=== PATIENT | male | born 1940 | race Caucasian/White ===

== ENCOUNTER 2024-06-09 11:36 | Outpatient (CLI) | payer MEDICARE, OTHER ==
[2024-06-09 12:23] LABS: BASOPHILS # (AUTO) 0.1 K/uL (0.0-0.2); BASOPHILS % (AUTO) 0.7 % (0.0-2.0); EOSINOPHILS # (AUTO) 0.1 K/uL (0.0-0.7); EOSINOPHILS % (AUTO) 1.9 % (0.0-6.0); HEMATOCRIT 43 % (39-51); HEMOGLOBIN 15.3 g/dL (13.5-17.5); LYMPHOCYTES # (AUTO) 2.6 K/uL (0.8-4.8); LYMPHOCYTES % (AUTO) 33.6 % (20.0-44.0); MEAN CORPUSCULAR HEMOGLOBIN 32 PG (26.0-33.0); MEAN CORPUSCULAR HGB CONC 35 g/dl (31.0-36.0); MEAN CORPUSCULAR VOLUME 92 fL (80-96); MONOCYTES # (AUTO) 0.9 K/uL (0.1-1.30); MONOCYTES % (AUTO) 11.2 % (2.0-12.0); NEUTROPHILS % (AUTO) 52.6 % (43.0-81.0); PLATELET COUNT (AUTO) 176 K/uL (150-450); RED BLOOD CELL COUNT(AUTO) 4.72 MIL/uL (4.5-6.0); RED CELL DISTRIBUTION WIDTH 12.7 % (11.5-15.0); WHITE BLOOD COUNT (AUTO) 7.6 K/uL (4.3-11.0)
[2024-06-09 12:27] LABS: ALANINE AMINOTRANSFERASE 30 U/L (12-78); ALBUMIN 3.3 g/dL (3.4-5.0); ALKALINE PHOSPHATASE 63 U/L (46-116); ASPARTATE AMINOTRANSFERASE 23 U/L (15-37); BILIRUBIN,TOTAL 0.4 mg/dL (0.2-1.0); CALCIUM, SERUM 8.9 mg/dL (8.5-10.1); CARBON DIOXIDE 31 mmol/L (21-32); CHLORIDE 103 mmol/L (98-107); CREATININE 1.1 mg/dL (0.6-1.3); GLUCOSE 99 mg/dL (74-106); POTASSIUM 3.9 mmol/L (3.5-5.1); SODIUM SERUM 140 mmol/L (136-145); TOTAL PROTEIN, SERUM 7.4 g/dL (6.4-8.2); UREA NITROGEN, BLOOD 18 mg/dL (7-18)
[2024-06-09 12:28] LABS: INR 0.99 (0.91-1.10); PROTHROMBIN TIME 10.5 SECS (9.2-11.1)
== END 2024-06-09 23:59 | disposition home or self-care (01) ==
LOC: RAD 11:36
PROVIDERS: ATTEND Internal Medicine Interventional Cardiology
DX: Z01.818 Encounter for other preprocedural examination (principal); D68.9 Coagulation defect, unspecified
CPT/HCPCS: 36415; 71046; 80053-TC; 85025-TC; 85610-TC; 85730-TC

== ENCOUNTER 2024-06-25 09:01 | Inpatient (IN) | payer MEDICARE, OTHER ==
[~2024-06-25] VITALS: Ht 165.1 cm; Wt 70.3 kg
[2024-06-25] MEDS ORDERED: LIDOCAINE 1%-EPI 1:100,000 20 ML VIAL ONE (10:37)
[2024-06-25] MEDS ORDERED: OXYMETAZOLINE HCL NASAL SPRAY 30 ML BOTTLE NS ONE (10:37)
[2024-06-25] MEDS ORDERED: VANCOMYCIN 1 GM VIAL ONE (10:37)
[2024-06-25] MEDS ORDERED: dexaMETHasone SOD PHOSPHATE 2 ML ONE (10:37)
[2024-06-25] MEDS ORDERED: LIDOCAINE 2%-EPI 1:100,000 30 ML VIAL ONE (10:38)
[2024-06-25 13:25] VITALS: BP 109/62; TEMP 98.5; O2SAT 94
[2024-06-25] MEDS ORDERED: ONDANSETRON HCL/PF 4 MG/2 ML VIAL IV PRN (13:30)
[2024-06-25 13:40] VITALS: BP 113/62; TEMP 98.7; O2SAT 95
[2024-06-25 13:55] VITALS: BP 118/63; TEMP 98.5; O2SAT 95
[2024-06-25 14:05] VITALS: BP 115/64; TEMP 98.5; O2SAT 96
[2024-06-25] MEDS: IV NS 0.9% 1,000 ML IV PRN (15:01)
[2024-06-25] MEDS: HYDROMORPHONE 1 MG/1 ML DISP.SYRIN IV PRN (15:06)
[2024-06-25 16:00] VITALS: BP 126/65; TEMP 98.2; O2SAT 96
[2024-06-25 20:00] VITALS: BP 113/57; TEMP 98.4; O2SAT 91; O2SAT 95
[2024-06-25] MEDS: ACETAMINOPHEN 325 MG TABLET PO PRN (20:42)
[2024-06-25] MEDS: VANCOMYCIN 1 GM in IV D5W 250ml IV SCH (21:48)
[2024-06-26 07:01] LABS: BASOPHILS % (AUTO) 0.1 % (0.0-2.0); HEMATOCRIT 39 % (39-51); HEMOGLOBIN 13.8 g/dL (13.5-17.5); LYMPHOCYTES # (AUTO) 1.5 K/uL (0.8-4.8); LYMPHOCYTES % (AUTO) 10.6 % (20.0-44.0); MEAN CORPUSCULAR HEMOGLOBIN 32 PG (26.0-33.0); MEAN CORPUSCULAR HGB CONC 35 g/dl (31.0-36.0); MEAN CORPUSCULAR VOLUME 92 fL (80-96); MONOCYTES # (AUTO) 0.8 K/uL (0.1-1.30); MONOCYTES % (AUTO) 5.9 % (2.0-12.0); NEUTROPHILS # (AUTO) 11.8 K/uL (1.8-8.9); NEUTROPHILS % (AUTO) 83.4 % (43.0-81.0); PLATELET COUNT (AUTO) 149 K/uL (150-450); RED BLOOD CELL COUNT(AUTO) 4.27 MIL/uL (4.5-6.0); RED CELL DISTRIBUTION WIDTH 12.7 % (11.5-15.0); WHITE BLOOD COUNT (AUTO) 14.2 K/uL (4.3-11.0)
[2024-06-26 07:10] LABS: ALANINE AMINOTRANSFERASE 26 U/L (12-78); ALBUMIN 2.9 g/dL (3.4-5.0); ALKALINE PHOSPHATASE 44 U/L (46-116); ASPARTATE AMINOTRANSFERASE 20 U/L (15-37); BILIRUBIN,TOTAL 0.6 mg/dL (0.2-1.0); CALCIUM, SERUM 8.9 mg/dL (8.5-10.1); CARBON DIOXIDE 26 mmol/L (21-32); CHLORIDE 110 mmol/L (98-107); GLUCOSE 120 mg/dL (74-106); MAGNESIUM 2.1 mg/dL (1.8-2.4); POTASSIUM 3.8 mmol/L (3.5-5.1); SODIUM SERUM 142 mmol/L (136-145); TOTAL PROTEIN, SERUM 6.6 g/dL (6.4-8.2); UREA NITROGEN, BLOOD 29 mg/dL (7-18)
[2024-06-26 08:00] VITALS: BP 110/68; TEMP 97.5; O2SAT 99
== END 2024-06-26 10:15 | disposition home or self-care (01) | DRG 496 ==
LOC: DS 09:01 → MED 13:24
PROVIDERS: ADMIT Internal Medicine; ATTEND Internal Medicine
PROC: 0N5R0ZZ Destruction of Maxilla, Open Approach (ICD-10-PCS; principal; 2024-06-25)
PROC: 0NUR07Z Supplement Maxilla with Autologous Tissue Substitute, Open Approach (ICD-10-PCS; 2024-06-25)
PROC: 0NUR0JZ Supplement Maxilla with Synthetic Substitute, Open Approach (ICD-10-PCS; 2024-06-25)
PROC: 0NHR04Z Insertion of Internal Fixation Device into Maxilla, Open Approach (ICD-10-PCS; 2024-06-25)
PROC: [UNRECOGNIZED PROCEDURE] (2024-06-25)
DX: T84.69XA Infection and inflammatory reaction due to internal fixation device of other site, initial encounter (principal); M87.9 Osteonecrosis, unspecified; S02.40CK Maxillary fracture, right side, subsequent encounter for fracture with nonunion; S02.40DK Maxillary fracture, left side, subsequent encounter for fracture with nonunion; M27.2 Inflammatory conditions of jaws; I10 Essential (primary) hypertension; I08.0 Rheumatic disorders of both mitral and aortic valves; X58.XXXD Exposure to other specified factors, subsequent encounter; D16.4 Benign neoplasm of bones of skull and face; Y83.8 Other surgical procedures as the cause of abnormal reaction of the patient, or of later complication, without mention of misadventure at the time of the procedure; Y92.009 Unspecified place in unspecified non-institutional (private) residence as the place of occurrence of the external cause
CPT/HCPCS: 36415; 80053-TC; 83735-TC; 84100-TC; 85025-TC; 87081-TC; A4223; A4338; C1713; C1781; G0378; J0360; J0461; J0690; J1100; J1171; J2704; J3370; J3490; J7030; J7060

== ENCOUNTER 2024-10-29 07:39 | Inpatient (IN) | payer MEDICARE, OTHER ==
[~2024-10-29] VITALS: Ht 162.6 cm; Wt 83.9 kg
[~2024-10-29 07:39] MED LIST: LIDOCAINE 2%-EPI 1:100,000 30 ML VIAL ONE; VANCOMYCIN 1 GM VIAL ONE; dexaMETHasone SOD PHOSPHATE 1 ML ONE
[2024-10-29] MEDS ORDERED: LABETALOL HCL IV 100MG VIAL ONE (09:25)
[2024-10-29] MEDS ORDERED: dexaMETHasone SOD PHOSPHATE 2 ML ONE (10:20)
[2024-10-29] MEDS ORDERED: LIDOCAINE 2%-EPI 1:100,000 30 ML VIAL ONE (10:21)
[2024-10-29] MEDS ORDERED: VANCOMYCIN 1 GM VIAL ONE (10:21)
[2024-10-29] MEDS ORDERED: OXYMETAZOLINE HCL NASAL SPRAY 30 ML BOTTLE NS ONE (10:21)
[2024-10-29 11:00] VITALS: BP_SYST 114; BP_SYST 130; BP_DIAS 60; BP_DIAS 75; TEMP 97.5; TEMP 98.8; O2SAT 95; O2SAT 98
[2024-10-29] MEDS ORDERED: ONDANSETRON HCL/PF 4 MG/2 ML VIAL IV PRN (11:30)
[2024-10-29] MEDS ORDERED: HYDROMORPHONE 1 MG/1 ML DISP.SYRIN IV PRN ×2 (11:30)
[2024-10-29] MEDS ORDERED: PITA4TAB PO (13:32)
[2024-10-29] MEDS ORDERED: NEBI10TA2 PO (13:32)
[2024-10-29] MEDS ORDERED: LEVO25TA9 PO (13:32)
[2024-10-29] MEDS ORDERED: TAMS-12 PO (13:32)
[2024-10-29] MEDS ORDERED: ICOS1CAP PO (13:32)
[2024-10-29] MEDS ORDERED: ERGO500093 PO (13:32)
[2024-10-29] MEDS ORDERED: OLME1TAB92 PO (13:32)
[2024-10-29] MEDS ORDERED: TRAZ-252 PO (13:32)
[2024-10-29] MEDS ORDERED: DONE23TA3 PO (13:32)
[2024-10-29] MEDS ORDERED: HYDR100T27 PO (13:32)
[2024-10-29] MEDS ORDERED: ESZO3TAB39 MT (13:32)
[2024-10-29] MEDS ORDERED: ISOS10TA2 PO (13:32)
[2024-10-29] MEDS: IV NS 0.9% 1,000 ML IV PRN (14:57)
[2024-10-29] MEDS: ACETAMINOPHEN 325 MG TABLET PO PRN (15:41)
[2024-10-29 16:00] VITALS: BP 128/64; TEMP 99; O2SAT 94; O2SAT 95
[2024-10-29] MEDS ORDERED: FENTANYL PF 250MCG/5ML AMPUL ONE (18:10)
[2024-10-29 20:00] VITALS: BP_SYST 108; BP_SYST 135; BP_DIAS 52; BP_DIAS 79; TEMP 96.8; TEMP 98.6; O2SAT 95; O2SAT 96
[2024-10-29] MEDS: VANCOMYCIN 1 GM in IV D5W 250ml IV SCH (20:27)
[2024-10-29 22:21] VITALS: BP 123/60; TEMP 98.1; O2SAT 96
[2024-10-30 08:00] VITALS: BP 124/68; TEMP 98.2; O2SAT 95
== END 2024-10-30 09:36 | disposition home or self-care (01) | DRG 908 ==
LOC: DS 07:39 → MED 11:46
PROVIDERS: ADMIT Student in an Organized Health Care Education/Training Program; ATTEND Student in an Organized Health Care Education/Training Program
PROC: 0NPW04Z Removal of Internal Fixation Device from Facial Bone, Open Approach (ICD-10-PCS; 2024-10-29)
PROC: 0NSR04Z Reposition Maxilla with Internal Fixation Device, Open Approach (ICD-10-PCS; 2024-10-29)
PROC: 0NUR07Z Supplement Maxilla with Autologous Tissue Substitute, Open Approach (ICD-10-PCS; 2024-10-29)
PROC: 0NPW0JZ Removal of Synthetic Substitute from Facial Bone, Open Approach (ICD-10-PCS; 2024-10-29)
PROC: 0N5R0ZZ Destruction of Maxilla, Open Approach (ICD-10-PCS; principal; 2024-10-29 10:05)
DX: T86.831 Bone graft failure (principal); S02.40CK Maxillary fracture, right side, subsequent encounter for fracture with nonunion; T84.69XA Infection and inflammatory reaction due to internal fixation device of other site, initial encounter; S02.40DK Maxillary fracture, left side, subsequent encounter for fracture with nonunion; E78.5 Hyperlipidemia, unspecified; I10 Essential (primary) hypertension; E03.9 Hypothyroidism, unspecified; N40.0 Benign prostatic hyperplasia without lower urinary tract symptoms; I08.0 Rheumatic disorders of both mitral and aortic valves; Z79.890 Hormone replacement therapy; Z79.899 Other long term (current) drug therapy; Y83.8 Other surgical procedures as the cause of abnormal reaction of the patient, or of later complication, without mention of misadventure at the time of the procedure; Y92.009 Unspecified place in unspecified non-institutional (private) residence as the place of occurrence of the external cause; X58.XXXD Exposure to other specified factors, subsequent encounter; M85.60 Other cyst of bone, unspecified site; Y83.2 Surgical operation with anastomosis, bypass or graft as the cause of abnormal reaction of the patient, or of later complication, without mention of misadventure at the time of the procedure
CPT/HCPCS: A4223; A4338; C1713; G0378; J1100; J1171; J2704; J3010; J3370; J3490; J7030; J7060

== ENCOUNTER 2025-03-24 08:35 | Inpatient (IN) | payer MEDICARE, OTHER ==
[~2025-03-24] VITALS: Ht 165.1 cm; Wt 72.6 kg
[~2025-03-24 08:35] MED LIST changes: +DONE23TA3 PO; +ERGO500093 PO; +ESZO3TAB39 PO; +HYDR100T27 PO; +ICOS1CAP PO; +ISOS10TA2 PO; +LEVO25TA9 PO; -LIDOCAINE 2%-EPI 1:100,000 30 ML VIAL ONE; +NEBI10TA2 PO; +OLME1TAB92 PO; +PITA4TAB PO; +TAMS-12 PO; +TRAZ-252 PO; -VANCOMYCIN 1 GM VIAL ONE; -dexaMETHasone SOD PHOSPHATE 1 ML ONE
[2025-03-24] MEDS ORDERED: dexaMETHasone SOD PHOSPHATE 2 ML ONE (09:49)
[2025-03-24] MEDS ORDERED: VANCOMYCIN 1 GM VIAL ONE (09:49)
[2025-03-24] MEDS ORDERED: OXYMETAZOLINE HCL NASAL SPRAY 30 ML BOTTLE NS ONE (09:49)
[2025-03-24] MEDS ORDERED: LIDOCAINE 2%-EPI 1:100,000 30 ML VIAL ONE (09:49)
[2025-03-24 13:03] VITALS: BP 105/57; TEMP 98.1; O2SAT 97
[2025-03-24] MEDS ORDERED: ACETAMINOPHEN 325 MG TABLET PO PRN ×2 (13:30→14:30)
[2025-03-24] MEDS ORDERED: HYDROMORPHONE 1 MG/1 ML DISP.SYRIN IV PRN (13:30)
[2025-03-24] MEDS ORDERED: IV NS 0.9% 1,000 ML IV PRN (13:30)
[2025-03-24] MEDS ORDERED: ONDANSETRON HCL/PF 4 MG/2 ML VIAL IV PRN (13:30)
[2025-03-24] MEDS ORDERED: ANESTHESIA TRAY IN PYXIS 1 EA TRAY MC ONE (13:31)
[2025-03-24] MEDS ORDERED: ONDANSETRON HCL/PF 4 MG/2 ML VIAL IVP PRN (14:30)
[2025-03-24] MEDS ORDERED: TRAZODONE 50 MG TABLET PO PRN (14:30)
[2025-03-24] MEDS ORDERED: MAGNESIUM HYDROXIDE 30 ML UDC PO PRN (14:30)
[2025-03-24] MEDS ORDERED: MAG HYDROX/AL HYDROX/SIMETH 30 ML UDC PO PRN (14:30)
[2025-03-24] MEDS ORDERED: Z GUARD REMEDY 4 OZ OINT TP PRN (14:30)
[2025-03-24 16:00] VITALS: BP 113/53; TEMP 97.7; O2SAT 96
[2025-03-24] MEDS ORDERED: ZOLPIDEM TARTRATE 5 MG TABLET PO PRN (16:00)
[2025-03-24] MEDS: METOPROLOL TARTRATE 50 MG TABLET PO SCH (17:30)
[2025-03-24] MEDS: FAMOTIDINE (20 MG) 20 MG TABLET PO SCH (17:34)
[2025-03-24 20:00] VITALS: BP 118/62; TEMP 97.3; O2SAT 96
[2025-03-24] MEDS: ATORVASTATIN 10 MG TABLET PO SCH (21:03)
[2025-03-24] MEDS: VANCOMYCIN 1 GM in IV D5W 250ml IV SCH (21:03)
[2025-03-25 07:16] LABS: PLATELET COUNT (AUTO) 191 K/uL (150-450); RED BLOOD CELL COUNT(AUTO) 4.82 MIL/uL (4.5-6.0); RED CELL DISTRIBUTION WIDTH 12.6 % (11.5-15.0); WHITE BLOOD COUNT (AUTO) 14.4 K/uL (4.3-11.0)
[2025-03-25 08:00] VITALS: BP 114/61; TEMP 98.2; O2SAT 95
[2025-03-25 08:04] LABS: CALCIUM, SERUM 8.7 mg/dL (8.5-10.1); CREATININE 1.4 mg/dL (0.6-1.3); PHOSPHORUS 2.7 mg/dL (2.5-4.9); SODIUM SERUM 140.0 mmol/L (136-145); UREA NITROGEN, BLOOD 33.0 mg/dL (7-18)
[2025-03-25] MEDS: DONEPEZIL 5 MG TABLET PO SCH (08:41)
[2025-03-25] MEDS: TAMSULOSIN 0.4 MG CAP.SR.24H PO SCH (08:41)
[2025-03-25] MEDS: LEVOTHYROXINE SODIUM 25 MCG TABLET PO SCH (08:43)
[2025-03-25] MEDS: ISOSORBIDE DINITRATE (10MG) 10 MG TABLET PO SCH (08:43)
[2025-03-25 10:20] VITALS: BP 110/57
[2025-03-25] MEDS: HYDROCHLOROTHIAZIDE 25 MG TABLET PO SCH (10:20)
[2025-03-25] MEDS: LOSARTAN POTASSIUM 50 MG TABLET PO SCH (10:20)
[2025-03-25] MEDS: IV NS 0.9% 500 ML BAG IV ONE (10:38)
== END 2025-03-25 11:58 | disposition home or self-care (01) | DRG 497 ==
LOC: DS 08:35 → MED 11:01
PROVIDERS: ADMIT Nurse Practitioner Acute Care; ATTEND Nurse Practitioner Acute Care
PROC: 0NPW04Z Removal of Internal Fixation Device from Facial Bone, Open Approach (ICD-10-PCS; 2025-03-24)
PROC: 0NUR0KZ Supplement Maxilla with Nonautologous Tissue Substitute, Open Approach (ICD-10-PCS; 2025-03-24)
PROC: 0N5R0ZZ Destruction of Maxilla, Open Approach (ICD-10-PCS; principal; 2025-03-24 10:10)
DX: T84.69XA Infection and inflammatory reaction due to internal fixation device of other site, initial encounter (principal); M27.2 Inflammatory conditions of jaws; F41.9 Anxiety disorder, unspecified; I10 Essential (primary) hypertension; E78.5 Hyperlipidemia, unspecified; Z79.890 Hormone replacement therapy; Z79.899 Other long term (current) drug therapy; I08.0 Rheumatic disorders of both mitral and aortic valves; D72.829 Elevated white blood cell count, unspecified; M89.38 Hypertrophy of bone, other site; Y83.8 Other surgical procedures as the cause of abnormal reaction of the patient, or of later complication, without mention of misadventure at the time of the procedure; Y92.009 Unspecified place in unspecified non-institutional (private) residence as the place of occurrence of the external cause; D16.4 Benign neoplasm of bones of skull and face; K13.4 Granuloma and granuloma-like lesions of oral mucosa
CPT/HCPCS: 36415; 80048-TC; 83735-TC; 84100-TC; 85025-TC; 87081-TC; 88300-TC; 88302-TC; 88311-TC; 88312-TC; A4223; G0378; J0690; J1100; J2704; J3373; J3490; J7030; J7040; J7050; J7060